=== PATIENT | male | born 1970 | race Hispanic/Latino ===

== ENCOUNTER → 2020-08-01 | Outpatient (CLI) | payer BC | END | disposition home or self-care (01) | LOC: RAH 15:20 | PROVIDERS: ATTEND Physical Medicine & Rehabilitation | DX: M50.221 Other cervical disc displacement at C4-C5 level (principal) | CPT/HCPCS: 72141 ==

== ENCOUNTER → 2024-03-19 | Outpatient (CLI) | payer OTHER | END | disposition home or self-care (01) | LOC: RAH 08:25 | PROVIDERS: ATTEND Nurse Practitioner Family | DX: Z13.6 Encounter for screening for cardiovascular disorders (principal) | CPT/HCPCS: 75571 ==

== ENCOUNTER 2024-05-06 06:30 | Day surgery (SDC) | payer BC ==
[2024-05-04 10:44] VITALS: BP 181/92; PULSE 55; RESP 18; TEMP 97.2
[2024-05-04 10:44] LABS: POTASSIUM 4.5 mmol/L (3.5-5.1)
[2024-05-04 10:55] LABS: B-TYPE NATRIURETIC PEPTIDE < 5 pg/mL (0-100)
[2024-05-04 11:04] LABS: HEMATOCRIT 50.8 % (42-54); MEAN CORPUSCULAR HEMOGLOBIN 28.5 pg (27.0-33.0); MEAN CORPUSCULAR HGB CONC 32.7 g/dL (32.0-36.0); MEAN CORPUSCULAR VOLUME 87.1 fL (79-99); RED BLOOD CELL COUNT(AUTO) 5.83 MIL/uL (4.50-6.20); WHITE BLOOD COUNT (AUTO) 6.3 K/uL (4.8-10.8)
[2024-05-04 11:05] LABS: EOSINOPHILS # (AUTO) 0.12 K/uL (0.00-0.70); EOSINOPHILS % (AUTO) 1.9 % (0.0-8.0); LYMPHOCYTES # (AUTO) 1.8 K/uL (1.0-4.8); LYMPHOCYTES % (AUTO) 28.9 % (21.0-51.0); MONOCYTES # (AUTO) 0.7 K/uL (0.1-1.0); MONOCYTES % (AUTO) 10.4 % (3.0-13.0); NEUTROPHILS # (AUTO) 3.6 K/uL (1.8-7.7); NEUTROPHILS % (AUTO) 57.6 % (40.0-77.0); PLATELET COUNT (AUTO) 230 K/uL (130-400); RED CELL DISTRIBUTION WIDTH 13.4 % (11.0-15.5)
[2024-05-04 11:06] LABS: BASOPHILS # (AUTO) 0.06 K/uL (0.00-0.20)
--- NOTE | 2024-05-04 11:48 | HMCIMG ---
CHEST 1VW HISTORY: Preop COMPARISON: None FINDINGS: A frontal projection of the chest was obtained. No acute pulmonary infiltrates is seen. The heart is normal in size. No evidence of aortic calcification is seen. IMPRESSION: 1. No acute pulmonary infiltrate is seen.
[2024-05-04 12:11] LABS: INR 0.96 (0.85-1.15); PROTHROMBIN TIME 10.4 SEC (9.6-11.6)
[2024-05-04 12:12] LABS: PARTIAL THROMBOPLASTIN TIME 31.6 SEC (26.3-35.5)
--- NOTE | 2024-05-04 14:19 | EKG ---
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
[~2024-05-06] VITALS: Ht 188 cm; Wt 99.5 kg
[2024-05-06] VITALS (9 sets, daily range): BP systolic 120–174; BP diastolic 74–93; PULSE 47–58; RESP 12–21; TEMP 96.5–97.2
[~2024-05-06 06:30] MED LIST: ASPI-1443 PO; ATOR40TA71 PO; ISOS30TA92 PO; LEVO25TA54 PO; LISI20TA24 PO
[2024-05-06] MEDS: 0.9%NACL 1000ML 1,000 ML IV SCH ×2 (06:56→10:20)
[2024-05-06] MEDS ORDERED: IOHEXOL 350 MG/ML 100ML INFUS..BTL IV ONE (07:19)
[2024-05-06] MEDS ORDERED: LIDOCAINE HCL 400MG/20ML VIAL ONE (07:19)
[2024-05-06] MEDS ORDERED: HEParin 10,000 UNIT/10ML (1,000 UNIT/ML) VIAL ONE (07:19)
[2024-05-06] MEDS ORDERED: HEParin-NS 1,000 UNIT/500 ML 1,000 ML IV ONE (07:19)
[2024-05-06] MEDS ORDERED: NITROGLYCERIN 50MG VIAL ONE (07:19)
[2024-05-06] MEDS ORDERED: niCARDIpine 25MG INJ IV ONE (07:31)
[2024-05-06] MEDS ORDERED: FENTanyl CITRate PF 50 MCG/1 ML 2ML VIAL ONE ×2 (08:06→08:42)
[2024-05-06] MEDS ORDERED: MIDAZOLAM HCL 1 MG/ML 2ML VIAL ONE ×2 (08:07→08:30)
[2024-05-06] MEDS ORDERED: ATROPINE 1MG SYG IVP ONE (08:45)
[2024-05-06] MEDS ORDERED: GLUCAGON 1MG KIT 1 MG ML IM PRN (09:30)
[2024-05-06] MEDS ORDERED: DEXTROSE 50%-WATER 50 ML DISP.SYRIN IV PRN (09:30)
--- NOTE | 2024-05-06 09:36 | PRN ---
PROCEDURE NOTE Indications: 1. Chest pain, CCS I symptoms 2. High calcium score (>3000) 3. HLP 4. Hypothyroidism Procedures: Left heart catheterization, coronary angiogram Introduction: After informed written consent was obtained, the patient was brought to the Catheterization Lab in the usual fasting state. Following sterile prep and drape, a time out was performed, then moderate sedation was administered, 1mg of Versed and 50mcg of Fentanyl, then 1% Lidocaine was infiltrated into the right wrist. Using a Modified Seldinger technique, a 6Fr Sheath was inserted into the right radial artery. While under fluoroscopic guidance, diagnostic coronary catheters were advanced over a wire into the central circulation where they were aspirated, flushed and placed to pressure monitoring, once the wire was removed. Coronary Angio: The left and right coronary arteries were engaged with appropriate catheters and angiography was performed under continuous pressure monitoring. Left Heart Catheterization: A JR4 catheter was inserted into the LV and the pressure was recorded, then the catheter was removed from the LV. Cardiac Findings: Right dominant system LM: Large caliber vessel with 20% stenosis in the ostial left main. The vessel bifurcates into the LAD and LCX. LAD: Large caliber vessel with 30-40% tubular stenosis in the proximal to mid LAD. The rest of the vessel has mild luminal irregularities. DERIK three blood flow. Diagonal one: Medium caliber vessel with 40% stenosis in the proximal diagonal one. Diagonal two: Small caliber vessel with mild luminal irregularities LCX: Large caliber vessel with 20-30% stenosis in the mid LCX. The rest of the vessel has mild luminal irregularities Ramus: Small caliber vessel with mild luminal irregularities. OM1: Medium caliber vessel with diffuse 20% stenosis in the proximal and mid OM1 OM2: Large caliber vessel with mild luminal irregularities. RCA: Large caliber vessel with diffuse 20-30% stenosis in the mid RCA. The rest of the vessel has mild luminal irregularities RPDA: Medium caliber vessel with mild luminal irregularities. RPLV: Medium caliber vessel with 20% stenosis in the ostial RPLV LVEDP: 13mmHg. Medications given: Versed 3mg, Fentanyl 125mcg, nicardipine 800mcg, nitroglycerin 600 mcg, heparin 5000 units x 1 dose Coronary Intervention: None Complications: None Conscious Sedation Monitoring: Under my direct order and supervision, medication for moderate conscious sedation was administered by the nursing staff and the patients level of consciousness and physiological status was monitored by an independent trained nurse. Closure of Access Site: After the case completed the sheath was pulled and a TR band was deployed on the right radial artery without complication. Conclusion: 1. Non-obstructive CAD 2. High calcium score (>3000) (majority of the calcium is extraluminal) 3. Chest pain, CCS I symptoms (likely secondary to microvascular dysfunction) 4. HLP 5. Hypothyroidism Recommendation: 1. Please enact TR band removal protocol 2. Risk precautions 3. 3 hours of bedrest 4. Start NS at 100 mL/hour x3 hours. 5. Continue goal-directed medical therapy 6. Please stopped isosorbide mononitrate and start ranolazine ER 500 mg BID. 7. Okay to DC once the TR band removal protocol has been completed in the right wrist is soft, and free of bruising, bleeding, and or hematoma formation. 8. No driving for the next 48-72 hours 9. No heavy lifting or strenuous exercise for the next two weeks. 10. Please have the patient follow up with Dr. Owens in 1-2 weeks. NICCI OWENS MD May 06, 2024 09:36
--- NOTE | 2024-05-06 11:00 | NUR ---
URINARY: VOIDED 600CC YELLOW COLOR URINE
== END 2024-05-06 12:20 | disposition home or self-care (01) ==
LOC: DAH 06:30
PROVIDERS: ATTEND Internal Medicine Cardiovascular Disease
DX: R07.9 Chest pain, unspecified (principal); I25.118 Atherosclerotic heart disease of native coronary artery with other forms of angina pectoris; R93.1 Abnormal findings on diagnostic imaging of heart and coronary circulation; R07.89 Other chest pain; E03.9 Hypothyroidism, unspecified; I10 Essential (primary) hypertension; E78.2 Mixed hyperlipidemia; I25.84 Coronary atherosclerosis due to calcified coronary lesion; Z90.49 Acquired absence of other specified parts of digestive tract; Z79.01 Long term (current) use of anticoagulants; Z79.899 Other long term (current) drug therapy
CPT/HCPCS: 80048; 83880; 85025; 85610; 85730; 36415; 71045; 93005; 93458; C1769; C1894; C1887; J3010 ×2; J3490 ×3; J7030; J1644 ×2; J2250 ×2; Q9967; A4215; A4222; A6260; A4221; A4663; A4216; A6206; A4606; Q9965 ×2; A4223 ×3; 96360; 96361; 99156; 99157; J0461